=== PATIENT | male | born 1990 | race Caucasian/White ===

== ENCOUNTER 2017-09-28 20:42 | Emergency (ER) | payer BC, OTHER ==
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
[2017-09-28 21:01] VITALS: BP 149/93
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
== END 2017-09-28 21:42 | disposition home or self-care (01) ==
LOC: ED 20:42
DX: M54.2 Cervicalgia (principal); V87.7XXA Person injured in collision between other specified motor vehicles (traffic), initial encounter; Y92.9 Unspecified place or not applicable; Y93.9 Activity, unspecified; Y99.9 Unspecified external cause status
CPT/HCPCS: 70450; 72040; 99283; 99284